=== PATIENT | male | born 2000 | race Caucasian/White ===

== ENCOUNTER 2019-04-18 20:59 | Emergency (ER) | payer OTHER, SELFPAY ==
[2019-04-18 21:00] VITALS: BP 119/66; PULSE 99; RESP 17; TEMP 36.4; O2SAT 94; BMI 43.5
[2019-04-18 21:22] VITALS: BP 127/85; PULSE 98; RESP 14; O2SAT 98
[2019-04-18 21:28] VITALS: O2SAT 98
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
[2019-04-18] MEDS: HYDROcodone Bitartrate/Apap 5/325 Tablet PO (22:18)
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
[2019-04-18 23:39] LABS: Absolute Lymphocyte Count 1.11 X10^3/ul (0.83-4.51); Absolute Neutrophil Count 8.7 X10^3/uL (2.0-7.7); Basophil# 0.01 X10^3/uL; Basophil% 0.1 % (0-1); Eosinophil# 0.04 X10^3/uL; Eosinophils% 0.4 % (0-5); Hematocrit 42.2 % (40-54); Hemoglobin 14.6 g/dl (13.0-16.5); Lymphocyte # 1.11 X10^3/ul (4.0); Lymphocyte % 10.5 % (19-41); Mean Corp Hgb Conc 34.6 g/gl (32-36); Mean Corpuscular Hgb 28.9 pg (27.0-32.0); Mean Corpuscular Volume 83.4 fL (80-94); Mean Platelet Vol. 9.9 fl (6.2-12.0); Monocyte# 0.64 X10^3/uL; Monocyte% 6.1 % (0-10); Neutrophil # 8.74 X10^3/uL (2.7-7.7); Neutrophil % 82.7 % (47-70); Platelet Count 238 K/mm3 (150-450); RBC Distribution Width CV 13.1 % (11.6-14.6); RBC Distribution Width SD 39.1 fl (35.1-43.9); Red Blood Count 5.06 M/mm3 (4.6-6.2); White Blood Count 10.6 K/mm3 (4.4-11.0)
[2019-04-18 23:43] LABS: POSITIVE COUNT NO; POSITIVE DIFFERENTIAL NO; POSITIVE MORPHOLOGY NO
[2019-04-18 23:44] LABS: International Normalized Ratio 1.1; Prothrombin Time (Protime)PT. 13.9 SECONDS (11.7-14.9)
[2019-04-18 23:45] LABS: Partial Thromboplast Time 27.5 Seconds (24.1-36.2)
[2019-04-18 23:46] VITALS: BP 129/72; PULSE 83; RESP 16; O2SAT 99
[2019-04-18 23:50] LABS: Anion Gap 5 (5-15); BUN 16 mg/dL (7-18); Calcium,Total 9.2 mg/dL (8.5-10.1); Chloride 106 mmol/L (98-107); Creatinine, Serum 0.94 mg/dL (0.70-1.30); EST Glomerular Filtration Rate 109 mL/min (>60); Est Glom Filt Rate - Afr Amer 132 mL/min (>60); Estimated Creatinine Clearance 121.28 ml/min; Glucose 102 mg/dL (74-106); Potassium 4.1 mmol/L (3.5-5.1); Sodium Level 139 mmol/L (136-145)
== END 2019-04-19 00:12 | disposition short-term general hospital (02) ==
PROVIDERS: Emergency Provider Emergency Medicine; Family Provider Family Medicine; PCP Family Medicine
DX: S02.19XA Other fracture of base of skull, initial encounter for closed fracture (principal); S02.102A Fracture of base of skull, left side, initial encounter for closed fracture; R40.2410 Glasgow coma scale score 13-15, unspecified time; W55.12XA Struck by horse, initial encounter; Y93.9 Activity, unspecified; Y92.9 Unspecified place or not applicable
CPT/HCPCS: 70450; 70486; 72125; 80048; 85025; 85610; 85730; 99282; A4216

== ENCOUNTER → 2021-01-11 13:09 | Outpatient (CLI) | payer SELFPAY, OTHER ==
--- NOTE | 2021-01-11 13:17 | CT_ITS ---
STUDY: CT ABDOMEN AND PELVIS WITH CONTRAST REASON FOR EXAM: Male, 20 years old. HERNIA. Left inguinal bulge. RADIATION DOSAGE (If Supplied By Facility): CTDIvol = ( 11.135 ) mGy, DLP = ( 462.49 ) mGycm TECHNIQUE: Transaxial images were obtained from the dome of the diaphragm to the symphysis pubis without oral contrast. Oral and amp; IV Readi-CAT and amp; 100mL Isovue-300 was administered. Sagittal and coronal images were reconstructed. Individualized dose optimization techniques were used for this CT. COMPARISON: None. FINDINGS: The visualized lung bases are unremarkable. The visualized portions of the heart are within normal limits. Normal liver. Normal gallbladder and extrahepatic biliary system. Normal spleen. Normal pancreas. Normal bilateral adrenal glands. Normal right kidney. There are too small to characterize low attenuation foci within the left kidney which likely reflect underlying cysts. Normal visualized stomach. Normal small intestine. Normal colon. There are surgical clips in the region of the appendix consistent with a prior appendectomy. Normal abdominal aorta. Normal inferior vena cava. Normal retroperitoneum. Normal urinary bladder. There is a left-sided inguinal hernia containing adipose tissue. Normal osseous structures. CT/Abdomen/Pelvis WITH Contrast IMPRESSION: Left-sided inguinal hernia containing adipose tissue. Electronically Signed: Sadaf Tellez MD at 13:59 EDT Tel , Service support ,
== END ==
PROVIDERS: PCP Family Medicine
DX: R19.09 Other intra-abdominal and pelvic swelling, mass and lump (principal)
CPT/HCPCS: 74177; Q9967